=== PATIENT | male | born 1970 | race African-American/Black ===

== ENCOUNTER 2020-06-20 11:28 | Emergency (ER) | payer SELFPAY ==
[~2020-06-20] VITALS: Ht 185.4 cm; Wt 77.0 kg
[2020-06-20] MEDS ORDERED: ACETAMINOPHEN 325MG TABLET PO ONE (11:45)
[2020-06-20] MEDS ORDERED: BACITRACIN ZINC OINT UDPKT TOP ONE (11:45)
[2020-06-20] MEDS ORDERED: TETANUS, DIPHTHERIA, PERTUSSIS VAC/PF 0.5ML (>7YR OLD) IM ONE (11:45)
[2020-06-20] MEDS ORDERED: LIDOCAINE HCL/PF 1% 10 MG/ML 5ML VIAL IJ ONE (11:45)
[2020-06-20 13:40] VITALS: BP 122/73
== END 2020-06-20 13:42 | disposition home or self-care (01) ==
LOC: ER 12:30
DX: S61.212A Laceration without foreign body of right middle finger without damage to nail, initial encounter (principal); W25.XXXA Contact with sharp glass, initial encounter; Y93.89 Activity, other specified; Y92.89 Other specified places as the place of occurrence of the external cause; Y99.8 Other external cause status
CPT/HCPCS: 12001; 73130; 90715; 99283; J3490; Z7610

== ENCOUNTER 2021-03-27 08:05 | Emergency (ER) | payer OTHER ==
[~2021-03-27] VITALS: Ht 182.9 cm; Wt 78.0 kg
[2021-03-27] MEDS ORDERED: IBUPROFEN 600MG TABLET PO STA (08:15)
[2021-03-27 08:43] LABS: BASOPHILS % 1.4 % (0.0-2.0); HEMOGLOBIN. 15.1 g/dL (14.0-18.0); LYMPHOCYTES % 17.5 % (20.0-50.0); MEAN CORPUSCULAR HEMOGLOBIN 28.7 pg (28.0-32.0); MEAN CORPUSCULAR VOLUME 87.3 fL (80.0-94.0); MEAN PLATELET VOLUME 8.3 fl (7.4-10.4); MONOCYTES % 7.6 % (2.0-8.0); NEUTROPHILS % 68.5 % (40.0-76.0); PLATELET 258 x1000/uL (130-400); RED BLOOD CELL COUNT 5.27 mill/uL (4.7-6.1); RED CELL DISTRIBUTION WIDTH 14.3 % (11.6-14.6)
[2021-03-27 08:45] LABS: CHLORIDE 103 mEq/L (98-107)
[2021-03-27 12:50] VITALS: BP 125/32
== END 2021-03-27 12:50 | disposition home or self-care (01) ==
LOC: ER 08:05
DX: R07.89 Other chest pain (principal)
CPT/HCPCS: 36415; 71045; 80053; 83880; 84484; 85025; 93005; 99291

== ENCOUNTER 2024-04-26 15:50 | Emergency (ER) | payer OTHER ==
[~2024-04-26] VITALS: Ht 182.9 cm; Wt 82.0 kg
[2024-04-26 15:56] VITALS: BP 142/83; TEMP 98.6; O2SAT 100
[2024-04-26 16:02] VITALS: PULSE 81; RESP 18; O2SAT 100
[2024-04-26 16:36] LABS: BASOPHILS % 1.1 % (0.0-2.0); EOSINOPHILS % 5.1 % (0.0-5.0); HEMATOCRIT. 42.8 % (42.0-52.0); HEMOGLOBIN. 13.8 g/dL (14.0-18.0); LYMPHOCYTES % 15.6 % (20.0-50.0); MEAN CORPUSCULAR HEMOGLOBIN 27.4 pg (28.0-32.0); MEAN CORPUSCULAR HGB CONC 32.2 g/dL (31.0-37.0); MEAN CORPUSCULAR VOLUME 85.1 fL (80.0-94.0); MEAN PLATELET VOLUME 7.9 fl (7.4-10.4); MONOCYTES % 8.6 % (2.0-8.0); NEUTROPHILS % 69.6 % (40.0-76.0); PLATELET 295 x1000/uL (130-400); RED BLOOD CELL COUNT 5.03 mill/uL (4.7-6.1); WHITE BLOOD COUNT 6.1 x1000/uL (4.5-11.0)
[2024-04-26] MEDS: MAGNESIUM/ALUMINUM HYDROXIDE/SIMETHICONE 30ML UDC PO ONE (16:38)
[2024-04-26 16:48] LABS: CHLORIDE 105 mEq/L (98-107); POTASSIUM 3.9 mEq/L (3.5-5.1); SODIUM 139 mEq/L (136-145)
[2024-04-26 16:49] LABS: CALCIUM 9.4 mg/dL (8.7-10.4); CARBON DIOXIDE 29 mEq/L (21-32)
[2024-04-26 16:54] LABS: CREATININE 1.2 mg/dL (0.6-1.3); GLUCOSE 91 mg/dL (70-105); UREA NITROGEN BLOOD 8 mg/dL (9-23)
[2024-04-26 16:55] LABS: TROPONIN I HIGH SENSITIVITY 6 ng/L (3.0-53)
[2024-04-26 16:56] LABS: ALANINE AMINOTRANSFERASE 23 IU/L (10-49); ALBUMIN 4.4 g/dL (3.2-4.8); ASPARTATE AMINOTRANSFERASE 28 IU/L (<34)
[2024-04-26 16:57] LABS: BILIRUBIN TOTAL 1.1 mg/dL (0.1-1.0); PROTEIN TOTAL 7.5 g/dL (6.0-8.3)
[2024-04-26] MEDS ORDERED: FAMO20TA8 MT (17:24)
== END 2024-04-26 17:30 | disposition home or self-care (01) ==
LOC: ER 15:50
DX: R10.13 Epigastric pain (principal); Z87.19 Personal history of other diseases of the digestive system
CPT/HCPCS: 36415; 71045; 80053; 84484; 85025; 93005; 99285